=== PATIENT | male | born 1955 | race African-American/Black ===

== ENCOUNTER 2020-01-12 11:35 | Observation (INO) ==
[2020-01-12 12:01] LABS: Basophils % 0.3 % (0.0-0.8); Eosinophils # 0.3 10*3/uL (0.0-0.87); Eosinophils % 5.4 % (0.00-10.9); Hematocrit 46.1 VOL% (42.0-52.0); Hemoglobin 14.6 GM/DL (14.0-18.0); Lymphocytes # 3.5 10*3/uL (1.4-4.0); Lymphocytes % 61.4 % (21.2-54.2); Mean Corpuscular HGB Conc 31.7 GM/DL (32-36); Mean Corpuscular Volume 84.6 FL (87-102); Monocytes % 5.7 % (1.7-12.7); Neutrophils % 27.2 % (38.7-73.9); Platelet Count 207 T/CUMM (130-400); Red Blood Count 5.45 MC/CUMM (3.8-5.5); Red Cell Distribution Width 14.3 % (9.3-17.3); White Blood Count 5.8 T/CUMM (4-12)
[2020-01-12 12:21] LABS: PT Patient Result 10.5 SECS (9.6-12.2); Partial Thromboplastin Time 22.5 SECS (20.8-36.0)
[2020-01-12 12:28] LABS: Albumin 3.7 G/DL (3.4-5.0); Bilirubin,Total 0.5 MG/DL (0.2-1.0); Calcium 9.1 MG/DL (8.5-10.1); Osmolality,Calculated 277.5 MOS/KG (273-304); Total Protein 7.2 G/DL (6.4-8.3)
[2020-01-12] MEDS ORDERED: PROMETHAZINE 25 MG/1 ML VIAL IM STA (12:40)
[2020-01-12] MEDS ORDERED: diphenhydrAMINE 50 MG/1 ML VIAL IM STA (12:40)
[2020-01-12 13:14] LABS: Anisocytosis Slight; Atypical Lymphocytes Few; Eosinophils 3 % (0-10); Lymphocytes 65 % (20-55); Platelet Estimate Normal; Segmented Neutrophils 29 % (50-85); Smudge Cells Few; Total Cells Counted 100
[2020-01-12] MEDS ORDERED: ALUMINUM/MAGNES/SIMETH MAX STR 30 ML UDCUP PO PRN (15:14)
[2020-01-12] MEDS ORDERED: hydrALAZINE 20 MG/1 ML VIAL IV PRN (15:14)
[2020-01-12] MEDS ORDERED: ONDANSETRON 4 MG/2 ML VIAL IV PRN (15:14)
[2020-01-12] MEDS ORDERED: ACETAMINOPHEN 325 MG TABLET PO PRN (15:14)
[2020-01-12] MEDS ORDERED: DOCUSATE SODIUM 100 MG CAPSULE PO PRN (15:14)
[2020-01-12] MEDS ORDERED: ENOXAPARIN 40 MG/0.4 ML SYRINGE SUBCUT SCH (15:30)
[2020-01-12] MEDS ORDERED: GABAPENTIN 300 MG CAPSULE PO PRN (16:03)
[2020-01-13 03:55] LABS: Basophils % 0.9 % (0.0-0.8); Eosinophils # 0.2 10*3/uL (0.0-0.87); Eosinophils % 3.4 % (0.00-10.9); Hematocrit 41.2 VOL% (42.0-52.0); Hemoglobin 14.3 GM/DL (14.0-18.0); Lymphocytes # 1.9 10*3/uL (1.4-4.0); Lymphocytes % 44.3 % (21.2-54.2); Mean Corpuscular HGB Conc 34.7 GM/DL (32-36); Mean Corpuscular Volume 82.9 FL (87-102); Mean Platelet Volume 10.9 FL (9.6-12.0); Monocytes % 8.9 % (1.7-12.7); Neutrophils % 42.5 % (38.7-73.9); Platelet Count 180 T/CUMM (130-400); Red Blood Count 4.97 MC/CUMM (3.8-5.5); Red Cell Distribution Width 12.4 % (9.3-17.3); White Blood Count 4.4 T/CUMM (4-12)
[2020-01-13 04:18] LABS: Calcium 8.6 MG/DL (8.5-10.1); Osmolality,Calculated 279.4 MOS/KG (273-304); Risk Ratio 3.58
[2020-01-13 08:03] VITALS: BP 115/71
[2020-01-13] MEDS ORDERED: ASPIRIN CHEW 81 MG TABLET PO SCH (09:00)
[2020-01-13] MEDS ORDERED: PANTOPRAZOLE 40 MG TABLET PO SCH (09:00)
[2020-01-13] MEDS ORDERED: FINASTERIDE 5 MG TABLET PO SCH (09:00)
[2020-01-13] MEDS ORDERED: hydroCHLOROthiazide 25 MG TABLET PO SCH (09:00)
[2020-01-13] MEDS ORDERED: DOXYCYCLINE HYCLATE 100 MG CAPSULE PO SCH (10:00)
== END 2020-01-13 09:40 | disposition home or self-care (01) ==
LOC: N.ED 11:35 → N.EDINP 11:35 → N.2W 15:49
PROVIDERS: ADMIT Internal Medicine; ATTEND Internal Medicine